=== PATIENT | female | born 1995 | race African-American/Black ===

== ENCOUNTER 2019-08-18 04:57 | Emergency (ER) | payer MEDICAID ==
[~2019-08-18] VITALS: Ht 157.5 cm; Wt 55.0 kg
[~2019-08-18 04:57] MED LIST: Docusate Sodium PO; LEVO500T2 PO
[2019-08-18 06:30] VITALS: BP 111/71
== END 2019-08-18 06:34 | disposition home or self-care (01) ==
LOC: ER 04:57
DX: B99.9 Unspecified infectious disease (principal); H10.89 Other conjunctivitis; F12.10 Cannabis abuse, uncomplicated
CPT/HCPCS: 99282; 99283

== ENCOUNTER 2019-10-03 22:20 | Emergency (ER) | payer MEDICAID ==
[~2019-10-03] VITALS: Ht 157.5 cm; Wt 64.0 kg
[2019-10-03 23:34] VITALS: BP 95/50
[2019-10-04] MEDS ORDERED: IBUPROFEN 400MG TABLET PO ONE (01:45)
[2019-10-04 02:48] LABS: CLARITY URINE CLEAR (CLEAR); COLOR URINE YELLOW (YELLOW); KETONES URINE 2+ (NEGATIVE); LEUKOCYTE ESTERASE URINE 1+ (NEGATIVE); NITRITE URINE NEGATIVE (NEGATIVE); OCCULT BLOOD URINE TRACE (NEGATIVE); PROTEIN URINE NEGATIVE (NEGATIVE); SPECIFIC GRAVITY URINE 1.024 (1.005-1.030)
== END 2019-10-04 03:37 | disposition home or self-care (01) ==
LOC: ER 22:20
DX: N39.0 Urinary tract infection, site not specified (principal)
CPT/HCPCS: 81003; 81025; 87804; 99283

== ENCOUNTER 2022-10-25 22:36 | Emergency (ER) | payer MEDICAID ==
[~2022-10-25] VITALS: Ht 157.5 cm; Wt 66.3 kg
[2022-10-26] MEDS ORDERED: ACETAMINOPHEN 500MG TABLET PO ONE (03:30)
[2022-10-26] MEDS ORDERED: KETOROLAC 30MG/ML VIAL IM ONE (03:30)
[2022-10-26] MEDS ORDERED: GUAI-453 MT (03:39)
[2022-10-26] MEDS ORDERED: IBUP-2029 MT (03:39)
[2022-10-26 03:43] VITALS: BP 113/72
== END 2022-10-26 04:06 | disposition home or self-care (01) ==
LOC: ER 22:46
DX: B34.9 Viral infection, unspecified (principal)
CPT/HCPCS: 81025; 96372; 99283; J1885